=== PATIENT | male | born 1990 | race Caucasian/White ===

== ENCOUNTER 2016-10-21 23:57 | Emergency (ER) | payer BC ==
[~2016-10-21] VITALS: Ht 177.8 cm; Wt 67.4 kg
[~2016-10-21 23:57] MED LIST: VIBRAMYCIN100 MG PO
[2016-10-22] MEDS ORDERED: BACTRIM,SEPT1 TABLET PO (00:18)
[2016-10-22] MEDS ORDERED: BACTROBAN NASAL1 G1 BOTH NARES (00:18)
[2016-10-22 00:23] VITALS: BP 134/73
== END 2016-10-22 00:24 | disposition home or self-care (01) ==
LOC: EME 23:57
DX: B95.62 Methicillin resistant Staphylococcus aureus infection as the cause of diseases classified elsewhere (principal); Z86.14 Personal history of Methicillin resistant Staphylococcus aureus infection
CPT/HCPCS: 99281; 99284

== ENCOUNTER 2016-10-25 19:57 | Emergency (ER) | payer BC ==
[~2016-10-25] VITALS: Ht 177.8 cm; Wt 65.1 kg
[~2016-10-25 19:57] MED LIST changes: +BACTRIM,SEPT1 TABLET PO; +BACTROBAN NASAL1 G1 BOTH NARES
[2016-10-25 20:06] VITALS: BP 117/80
== END 2016-10-25 20:49 | disposition home or self-care (01) ==
LOC: EME 19:57
DX: J32.9 Chronic sinusitis, unspecified (principal); K12.0 Recurrent oral aphthae; Z86.14 Personal history of Methicillin resistant Staphylococcus aureus infection; Z72.0 Tobacco use
CPT/HCPCS: 99281; 99283

== ENCOUNTER 2016-11-21 20:22 | Emergency (ER) | payer BC, OTHER ==
[~2016-11-21] VITALS: Ht 177.8 cm; Wt 67.8 kg
[2016-11-21 21:41] LABS: HEMATOCRIT 40.2 % (38.0-50.0); MCH 31.7 PG (29.0-34.0); MCHC 34.1 G/DL (30.0-36.0); MCV 93.1 FL (86-99); MEAN PLAT.VOLUME 10.1 uM^3 (9.0-12.4); PLATELET COUNT 133 K/uL (156-360); RBC DIS.WIDTH-CV 12.1 % (11.8-14.6); RBC DIS.WIDTH-SD 42.1 % (39-53); RED BLOOD COUNT 4.32 M/uL (4.00-5.50); WHITE BLOOD COUNT 6.5 K/uL (4.1-10.2)
[2016-11-21 21:54] LABS: CHLORIDE 102 mEq/L (99-109); POTASSIUM 4.1 mEq/L (3.7-5.4); SODIUM 138 mEq/L (136-147)
[2016-11-21 21:56] LABS: GLUCOSE 92 mg/dL (70-99)
[2016-11-21 21:58] LABS: ANION GAP 11 MEQ/L (2-14); TOTAL BILIRUBIN 0.5 mg/dL (0.0-1.0)
[2016-11-21 22:00] LABS: ALKALINE PHOSPHATASE 69 IU/L (3-129); GFR ESTIMATE (CALCULATED) > 59 mL/min/
[2016-11-21 22:01] LABS: UREA NITROGEN (BUN) 10 mg/dL (9-23)
[2016-11-21 22:03] LABS: LIPASE 52 U/L (1.0-51.0)
[2016-11-21] MEDS ORDERED: PERCOCET 5/31 TABLET PO (23:03)
[2016-11-21] MEDS ORDERED: ZOFRAN4 MG PO (23:03)
[2016-11-21 23:32] VITALS: BP 122/57
== END 2016-11-21 23:39 | disposition home or self-care (01) ==
LOC: EME 20:22
PROVIDERS: Physician Assistant
DX: Z48.01 Encounter for change or removal of surgical wound dressing (principal); R10.9 Unspecified abdominal pain; S41.112D Laceration without foreign body of left upper arm, subsequent encounter; S31.114D Laceration without foreign body of abdominal wall, left lower quadrant without penetration into peritoneal cavity, subsequent encounter; X99.1XXD Assault by knife, subsequent encounter; F17.200 Nicotine dependence, unspecified, uncomplicated
CPT/HCPCS: 71260; 74177; 80053; 83690; 85027; 99281; 99284; J7040